=== PATIENT | female | born 1940 | race Caucasian/White ===

== ENCOUNTER 2018-05-31 14:29 | Emergency (ER) | payer MEDICARE ==
[~2018-05-31] VITALS: Ht 167.6 cm; Wt 73.0 kg
[2018-05-31] MEDS ORDERED: PREDNISONE20 MG PO ×2 (15:55→15:59)
[2018-05-31 16:10] VITALS: BP 145/70
== END 2018-05-31 16:10 | disposition home or self-care (01) ==
LOC: ED 14:29
DX: M25.562 Pain in left knee (principal); M25.462 Effusion, left knee; X50.1XXA Overexertion from prolonged static or awkward postures, initial encounter; Y93.01 Activity, walking, marching and hiking; Y92.009 Unspecified place in unspecified non-institutional (private) residence as the place of occurrence of the external cause

== ENCOUNTER 2020-03-04 05:11 | Observation (INO) | payer MEDICARE, BC ==
[~2020-03-04] VITALS: Ht 162.6 cm; Wt 74.0 kg
[~2020-03-04 05:11] MED LIST: PREDNISONE20 MG PO
--- NOTE | 2020-03-04 05:11 | NUR ---
PATIENT TO ROOM 10 VIA EMS STRETCHER. TRIAGE COMPLETED AT BEDSIDE.
[2020-03-04] MEDS ORDERED: BENAZEPRIL10 M1 PO (05:23)
[2020-03-04] MEDS ORDERED: CARVEDILOL6.25 MG PO (05:23)
[2020-03-04] MEDS ORDERED: PAXIL30 MG PO (05:23)
[2020-03-04] MEDS ORDERED: ESTRADIOL0.5 MG PO (05:24)
[2020-03-04] MEDS ORDERED: [UNRECOGNIZED DRUG - OTHER] PO (05:24)
[2020-03-04] MEDS ORDERED: LEVOTHYROXIN100 MC1 PO (05:25)
[2020-03-04] MEDS ORDERED: OMEPRAZOLE DR20 MG PO (05:25)
--- NOTE | 2020-03-04 05:35 | NUR ---
IVF HUNG AND PATIENT MEDICATED FOR NAUSEA. WHEN NAUSEA IMPROVED, WILL MEDICATE WITH LOMOTIL ORDERED. PATIENT ARRIVES AT BEDSIDE.
[2020-03-04 06:06] LABS: HEMATOCRIT 40.9 % (37.0-47.0); HEMOGLOBIN 13.6 g/dl (12.0-16.0); IMMATURE GRANULOCYTES 0.3 % (0.0-5.0); MEAN CELL VOLUME 89.1 fL CALC (80.0-100.0); MEAN CORPUSCULAR HGB 29.6 pG CALC (26.0-32.0); MEAN CORPUSCULAR HGB CONC 33.3 g/dL CAL (32.0-36.0); NEUT# 11.91 thou/uL (2.00-7.15); RED BLOOD COUNT 4.59 mill/uL (4.20-5.60); RED CELL DISTRI WIDTH 14.8 % (11.5-15.5)
--- NOTE | 2020-03-04 06:13 | NUR ---
PATIENT MEDICATED WITH LOMOTIL. COVID SWAB OBTAINED. NO EPISODES OF VOMITING NOTED SINCE ARRIVAL. AWAITING ALL RESULTS AND PLAN OF CARE.
[2020-03-04 06:17] LABS: ALBUMIN 3.9 g/dL (3.2-5.0); ALKALINE PHOSPHATASE 73 u/l (38-126); AMYLASE 37 u/l (30-110); ANION GAP 13 (6-22 (CALC)); BILIRUBIN, TOTAL 0.7 mg/dL (0.0-1.4); BUN 13 mg/dL (8-23); BUN/CREATININE RATIO 13 (12-20 (CALC)); CARBON DIOXIDE 27 mmol/l (22-30); CHLORIDE 94 mmol/l (95-108); GFR 53 ML/MIN (>=60 (CALC)); GFR FOR AFR.AMER. > 60 ML/MIN (>=60 (CALC)); LIPASE 16 u/l (23-300); SGOT/AST 28 u/l (9-36); SODIUM 129 mmol/l (137-146); TOTAL PROTEIN 7.1 g/dL (6.3-8.2)
[2020-03-04 06:27] LABS: POTASSIUM 5.2 mmol/l (3.5-5.1)
--- NOTE | 2020-03-04 07:01 | NUR ---
RECEIVED REPORT FROM BOGDAN BAER.
--- NOTE | 2020-03-04 07:05 | NUR ---
PATIENT UP TO BEDSIDE COMMODE. URINE SAMPLE COLLECTED AND SENT.
[2020-03-04 07:19] LABS: URINE BILIRUBIN - DIPSTICK NEGATIVE (NEGATIVE); URINE BLOOD DIPSTICK NEGATIVE (NEGATIVE); URINE COLOR YELLOW; URINE GLUCOSE - DIPSTICK NEGATIVE (NEGATIVE); URINE KETONE NEGATIVE (NEGATIVE); URINE LEUK ESTERASE NEGATIVE (NEGATIVE); URINE NITRITE - DIPSTICK NEGATIVE (Negative); URINE PROTEIN - DIPSTICK NEGATIVE (NEG-TRACE); URINE UROBILINOGEN - DIPSTICK 0.2 E.U./dL (0.2)
--- NOTE | 2020-03-04 08:22 | NUR ---
MD AT BEDSIDE TO DISCUSS RESULTS AND POC.
--- NOTE | 2020-03-04 09:04 | NUR ---
MD AT BEDSIDE TO DISCUSS RESULTS AND POC.
--- NOTE | 2020-03-04 09:41 | NUR ---
PT ASSISTED TO BEDSIDE COMMODE.
--- NOTE | 2020-03-04 09:51 | NUR ---
BLADDER SCAN RESULTS 999ML, DR JIMENEZ NOTIFIED.
--- NOTE | 2020-03-04 10:00 | NUR ---
recieved for care,stable. spouse at bedside. Discussed catheterization process. Opportunity for questions.
--- NOTE | 2020-03-04 10:24 | NUR ---
2000 cc drained urine from more. Dr graves
--- NOTE | 2020-03-04 11:05 | NUR ---
aware of impending admission.
--- NOTE | 2020-03-04 11:06 | NUR ---
report called to receiving RN in [facility].
--- NOTE | 2020-03-04 11:25 | NUR ---
PATIENT ARRIVED FROM ED AT THIS TIME. PATIENT ALERT AND ORIENTED AND STATES HER PAIN IS A 1 OUT OF A PAIN SCALE OF 0-10 AND IT IS LOCATED IN HER ABDOMINAL AREA. PATIENT DENIES NAUSEA AT THIS TIME AND HAS NOT VOMITTED. PATIENT ARCOS UNCLAMPED AT THIS TIME AND 300 CC OF CLEAR YELLOW URINE DRAINED AT THIS TIME. PATIENT HAS NOTED HEALING BRUISE UNDER RIGHT EYE AND A BRUISE ON LEFT HAND. PATIENT STATED SHE FELL IN [facility] IN [place] ON 02/20/20 AND WAS HOSPITALIZED AT [facility] DUE TO FALL. PATIENT IS ALERT AND ORIENTED HAS SLIGHT TRACE OF BILATERAL EDEMA IN ANKLES. PATIENT ORIENTED TO ROOM AND SURROUNDINGS AND PLAN OF CARE. CALL LIGHT IS IN PLACE SIDERAILS UP X2.
--- NOTE | 2020-03-04 11:25 | NUR ---
TRANSFERRED TO ROOM 271 VIA . STABLE. IV INTACT
[2020-03-04 11:35] VITALS: BP 154/68
--- NOTE | 2020-03-04 13:44 | NUR ---
PT WILL BENEFIT FROM PHYS THERAPY EVALUATION FOR FALL RISK ASSESSMENT, IF MEDICAL AGREES.
[2020-03-04 15:29] VITALS: BP 143/66
--- NOTE | 2020-03-04 16:14 | NUR ---
PATIENT LAYING IN BED AT THIS TIME RESTING WITH EYES CLOSED RESPIRATIONS EASY AND NON LABORED AT THIS TIME ARCOS PATENT AND DRAINING AT THIS TIME CLEAR YELLOW URINE. DENIES ANY PAIN AT THIS TIME SIDERAILS UP CALL LIGHT WITHIN REACH.
[2020-03-04 18:50] VITALS: BP 155/77
--- NOTE | 2020-03-04 19:35 | NUR ---
PATIENT RESTING IN BED AT THIS TIME WITH HOB ELEVATED-AWAKE ALERT AND ORIENTEDX3. NO COMPLAINTS AT THIS TIME. PATIENT DENIES ANY NAUSEA. STATES THAT THE LIQUIDS AT DINNER WERE TOLERATED WELL. IV SITE TO LAC INTACT WITH IVF PATENT AND INFUSING AT 50CC/HR. SITE IS HEALTHY AT THIS TIME. ARCOS PATENT AND DRAINING YELLOW URINE. SAFETY PRECAUTIONS REINFORCED. CALL LIGHT IN REACH. WILL CONT TO MONITOR.
[2020-03-04 23:30] VITALS: BP 142/71
--- NOTE | 2020-03-05 00:13 | NUR ---
PATIENT RESTING IN BED AT THIS TIME POSITIONED ON LEFT SIDE. RESPS ARE EVEN AND UNLABORED. IVF PATENT AND INFUSING VIA LAC SITE AT 50CC/HR. ARCOS PATENT AND DRAINING YELLOW URINE. CALL LIGHT IN REACH. WILL CONT TO MONITOR.
[2020-03-05 04:00] VITALS: BP 151/68
--- NOTE | 2020-03-05 05:45 | NUR ---
PATIENT AWAKE ALERT AND ORIENTEDX3. PATIENT STATES THAT SHE IS FEELING WELL. NO NAUSEA, NO PAIN, NO DIARRHEA. IVF PATENT AND INFUSING VIA LAC SITE AT 50CCHR. TAKING PO FLUIDS AND TOLERATING WELL. ARCOS PATENT AND DRAINING YELLOW URINE. SAFETY PRECAUTIONS REINFORCED. CALL LIGHT IN REACH. WILL CONT TO MONITOR.
[2020-03-05 05:54] LABS: MEAN CELL VOLUME 90.7 fL CALC (80.0-100.0); MEAN CORPUSCULAR HGB 29.6 pG CALC (26.0-32.0); MEAN CORPUSCULAR HGB CONC 32.7 g/dL CAL (32.0-36.0); RED BLOOD COUNT 3.78 mill/uL (4.20-5.60); RED CELL DISTRI WIDTH 15.3 % (11.5-15.5)
[2020-03-05 06:24] LABS: BUN 8 mg/dL (8-23); BUN/CREATININE RATIO 8 (12-20 (CALC)); CALCULATED LDLCHOLESTEROL 73 mg/dL (62-129 (CALC)); CARBON DIOXIDE 23 mmol/l (22-30); CHOLESTEROL HDL RATIO 5.1 (<4.4 (CALC)); GFR 53 ML/MIN (>=60 (CALC)); GFR FOR AFR.AMER. > 60 ML/MIN (>=60 (CALC)); HDL CHOLESTEROL 24 mg/dL (>=40); HEMATOCRIT 34.3 % (37.0-47.0); HEMOGLOBIN 11.2 g/dl (12.0-16.0); MAGNESIUM 1.6 mg/dL (1.6-2.3); TOTAL CHOLESTEROL 123 mg/dl (0-199); TOTAL TRIGLYCERIDES 129 mg/dl (30-149); VLDL CHOLESTROL 26 mg/dl (0-48 (CALC))
[2020-03-05 06:25] LABS: ANION GAP 11 (6-22 (CALC)); CHLORIDE 106 mmol/l (95-108); POTASSIUM 4.1 mmol/l (3.5-5.1); SODIUM 136 mmol/l (137-146)
--- NOTE | 2020-03-05 07:32 | NUR ---
PT note Screened patient for intervention. She is being worked up for possible arrythmia and we will defer eval recommendation for now
[2020-03-05 08:06] VITALS: BP 168/72
--- NOTE | 2020-03-05 08:06 | NUR ---
RECIEVED REPORT FROM KEYUR ORNELAS. PT RESTING IN SEMI FOWLERS POSITION UPON ENTERING ROOM. INTRODUCED SELF TO PT AND DISCUSSED POC. PT IS ASSESSMENT AND VITALS COMPLETED. BP 168/72, HR75, O2 95% ON ROOM AIR. RESPIRATIONS AR EVEN AND UNLABORED WITH NO DISTRESS NOTED. LUNG SOUNDS CLEAR. MURMUR PRESENT UPON ALSCULTATING. BOWEL SOUND ARE HYPOACTIVE, LAST REPORTED BM 03/04/20. PT REPORTS NOT EATING MUCH. RADIAL AND PEDAL PULSES STRONG. #20G LAC RUNNING WITH IVF PER ORDER, SITE APPEARS HEALTHY AND PATENT. PT COMPLAINS OF 3/10 HEAD ACHE. TYLNEOL ADMINISTERED. 600 OF CLEAR YELLOW URINE EMPTIED FROM ARCOS. ARCOS REMOVED PER ORDER. EDUACTED PT ON NEED TO VOID POST REMOVAL OF ARCOS. PT VERBALIZED UNDERSTANDING. PT EDUCATED ON NEED FOR STOOL SAMPLE. PT DENIES ANY OTHER NEEDS AT THIS TIME. ALL SAFETY PRECAUTIONS IN PLACE. WILL CONTINUE TO MONITOR
--- NOTE | 2020-03-05 10:14 | NUR ---
REASSESSMENT OF PAIN RESULTING IN 03/10. RESIRATIONS REMAINS EVEN AND UNLABORED. WILL CONTINUE TO MONITOR
[2020-03-05 11:03] VITALS: BP 143/67
--- NOTE | 2020-03-05 12:38 | NUR ---
BLADDER SCAN COMPLETED. 500ML NOTED. YARDAGE TUFTING MACHINE OPERATOR INFORMED THAT PT HAS OUTPUT 150ML SINCE ARCOS REMOVAL. EUGENIA,ANRP NOTFIED.
--- NOTE | 2020-03-05 12:49 | NUR ---
PLAN COORDINATOR NOTFIED BY RAPHAEL BELLO THAT PT WOULD BE DISCHARGED TODAY BUT IS PT CHOICE TO GO HOME WITH ARCOS CATHATER AND FOLLOW UP WITH UROLOGY TO AVOID RETAINING AGAIN WITH DISCOMFORT OR GO WITHOUT CATHATER AND STILL FOLLOW UP. PT STATES " I PREFER TO GO WITHOUT AND FOLLOW UP." PT EDUCATED OF POSSIBLE RETENTION OF URINE SINCE ARCOS CATHATER HAS ONLY BEEN OUT FOR A COUPLE OF HOURS. PT CONTINUE TO REQUEST GOING WITHOUT. RAPHAEL BELLO NOTFIED.
[2020-03-05] MEDS ORDERED: Levaquin PO (14:06)
[2020-03-05] MEDS ORDERED: METRONIDAZOL500 MG PO (14:06)
[2020-03-05] MEDS ORDERED: ZOFRAN4 MG/TAB PO (14:39)
[2020-03-05 14:45] VITALS: BP 151/72
--- NOTE | 2020-03-05 15:23 | NUR ---
PT EDUACTED ON DSICHARGE INSTRUCTIONS AND NEW MEDICATIONS. PT VERBALIZED UNDERSTANDING.IV REMOVED WITH CATHATER STILL INTACT. PT TOLRATED WELL. PT DISCHARGED WITH [facility]. PT DRESSING AT THIS TIME. ALL SAFETY PRECAUTIONS ARE IN PLACE WITH CALL LIGHT IN REACH. WILL CONTINUE TO MONITOR
--- NOTE | 2020-03-05 15:30 | NUR ---
Discharge instructions given. Patient verbalizes understanding of same. Discharged in stable condition via Wheelchair to Home with staff. All belongings sent with pt. PT DSICHARGED HOME WITH [facility] IN STABLE CONDITION ACCOMPAINED BY JAZZ LEGER WITH ALL BELONGINGS AND HOME MEDICATIONS
== END 2020-03-05 15:30 | disposition home health service (06) ==
LOC: ED 05:11 → ED-I 09:10 → ED 09:27 → MS2 09:28
PROVIDERS: Family Medicine; Nurse Practitioner; ADMIT Internal Medicine; ATTEND Internal Medicine
PROC: 0T9B70Z Drainage of Bladder with Drainage Device, Via Natural or Artificial Opening (ICD-10-PCS; principal; 2020-03-04)
DX: K52.9 Noninfective gastroenteritis and colitis, unspecified (principal); N32.0 Bladder-neck obstruction; E87.1 Hypo-osmolality and hyponatremia; E87.5 Hyperkalemia; R73.9 Hyperglycemia, unspecified; R68.0 Hypothermia, not associated with low environmental temperature; I10 Essential (primary) hypertension; E03.9 Hypothyroidism, unspecified; F41.9 Anxiety disorder, unspecified; K21.9 Gastro-esophageal reflux disease without esophagitis; F32.9 Major depressive disorder, single episode, unspecified; Z85.07 Personal history of malignant neoplasm of pancreas; Z90.49 Acquired absence of other specified parts of digestive tract; Z20.822 Contact with and (suspected) exposure to COVID-19
CPT/HCPCS: J1650; J1956; Q9967

== ENCOUNTER 2022-05-15 18:59 | Emergency (ER) | payer MEDICARE, BC ==
[~2022-05-15] VITALS: Ht 162.6 cm; Wt 65.0 kg
[2022-05-15] VITALS (8 sets, daily range): BP systolic 107–133; BP diastolic 48–65
[~2022-05-15 18:59] MED LIST changes: +BENAZEPRIL10 M1 PO; +CARVEDILOL6.25 MG PO; +ESTRADIOL0.5 MG PO; +LEVOTHYROXIN100 MC1 PO; +Levaquin PO; +METRONIDAZOL500 MG PO; +OMEPRAZOLE DR20 MG PO; +PAXIL30 MG PO; +ZOFRAN4 MG/TAB PO; +[UNRECOGNIZED DRUG - OTHER] PO
[2022-05-15] MEDS ORDERED: PAXLOVID PO (20:34)
== END 2022-05-15 21:11 | disposition home or self-care (01) ==
LOC: ED 18:59
DX: U07.1 COVID-19 (principal); R50.9 Fever, unspecified; J02.9 Acute pharyngitis, unspecified; R05.9 Cough, unspecified; R11.2 Nausea with vomiting, unspecified; R51.9 Headache, unspecified; M79.10 Myalgia, unspecified site; I10 Essential (primary) hypertension